=== PATIENT | female | born 1965 | race Caucasian/White ===

== ENCOUNTER 2021-10-10 18:24 | Emergency (ER) | payer OTHER ==
[2021-10-10 19:33] LABS: Absolute Lymphocytes (CBC) 3.6 K/uL (0.7-4.9); Hematocrit 41.7 % (36.0-45.0); Lymphocytes % 42.1 % (15.3-44.8); MCV 89.3 fL (80-100); MPV 9.6 fL (7.6-11.3); RBC Red Blood Cell Count 4.67 M/uL (3.86-4.86)
--- NOTE | 2021-10-10 19:44 | RAD REPORT ---
EXAM DESCRIPTION: Feliciano Single View10/10/2021 7:34 pm CLINICAL HISTORY: Chest pain COMPARISON: none FINDINGS: The lungs appear clear of acute infiltrate. The heart is normal size IMPRESSION: No acute abnormalities displayed
[2021-10-10 19:47] LABS: Protime INR 1.08
[2021-10-10] MEDS ORDERED: ASPIRIN 81 MG CHEWABLE TABLET ONE (19:47)
[2021-10-10 19:57] LABS: ALT/SGPT 18 U/L (12-78); AST/SGOT 12 U/L (15-37); Albumin 3.7 g/dL (3.4-5.0); Alkaline Phosphatase 114 U/L (45-117); BUN Blood Urea Nitrogen 11 mg/dL (7-18); Bicarbonate 27 mmol/L (21-32); Bilirubin Total 0.3 mg/dL (0.2-1.0); Glomerular Filtration Rate 69 ml/min (=/>90); Glucose Level 98 mg/dL (74-106); Magnesium 1.9 mg/dL (1.8-2.4); NT PRO-BNP 162 pg/mL (<125); Potassium 3.8 mmol/L (3.5-5.1); Protein, Total 7.1 g/dL (6.4-8.2); Sodium Level 140 mmol/L (136-145); Troponin High Sensitivity 4.3 pg/mL (<58.9)
[2021-10-10 19:59] LABS: Bilirubin Direct < 0.1 mg/dL (0-0.2)
--- NOTE | 2021-10-10 20:15 | RAD REPORT ---
EXAM DESCRIPTION: USExtrem Venous W Compress Bil10/10/2021 8:01 pm CLINICAL HISTORY: Leg pain COMPARISON: none FINDINGS: The common femoral, superficial femoral, popliteal and posterior tibial veins bilaterally are compressible and demonstrate augmentation. Doppler demonstrates good flow. Grayscale, color and spectral analysis performed on all vessels IMPRESSION: No evidence of deep venous thrombosis involving either lower extremity.
[2021-10-10] MEDS ORDERED: HYDROCODONE/APAP 10/325 TAB ONE (20:35)
--- NOTE | 2021-10-10 21:42 | RAD REPORT ---
EXAM DESCRIPTION: CT - Angio Aorta For Dissection - 10/10/2021 9:25 pm CLINICAL HISTORY: . Chest and abd pain COMPARISON: None TECHNIQUE: Computed tomography angiography of the chest, abdomen pelvis were obtained. 100 cc Isovue 370 was administered intravenously. Coronal and sagittal reconstruction were performed. MIP 3D reconstruction was performed All CT scans are performed using dose optimization technique as appropriate and may include automated exposure control or mA/KV adjustment according to patient size. FINDINGS: An aortic dissection is not seen. An aortic aneurysm is not displayed. The celiac, SMA and IRENA are patent . Mild to moderate thrombus within the abdominal aorta with small ulcerating plaque. A lung consolidation is not present. A pericardial effusion is not seen. A pleural effusion is not no [place]. Mild COPD The liver,spleen, pancreas,adrenals and kidneys demonstrate no significant abnormality. There no evidence diverticulitis. No adnexal mass Normal appendix. Small umbilical hernia IMPRESSION: Negative for an aortic dissection.
--- NOTE | 2021-10-10 22:11 | ER ---
Nurse's Notes [facility] Name: Sherley Tilley Age: 56 yrs Sex: Female : 1965 Arrival Date: 10/10/2021 Time: 18:26 Bed 5 Private MD: Diagnosis: Chest pain, unspecified Presentation: 10/10 18:28 Chief complaint: Patient states: I started having some pain in the middle of my chest bm7 this morning and I tried to work through it but I cant anymore. I think it is due to my productive cough. Coronavirus screen: At this time, the client does not indicate any symptoms associated with coronavirus-19. Ebola Screen: No symptoms or risks identified at this time. Initial Sepsis Screen: Does the patient meet any 2 criteria? No. Patient's initial sepsis screen is negative. Does the patient have a suspected source of infection? Yes: Productive cough/pneumonia. Risk Assessment: Do you want to hurt yourself or someone else? Patient reports no desire to harm self or others. Onset of symptoms was October 10, 2021. 18:28 Method Of Arrival: Ambulatory bm7 18:28 Acuity: ELICEO 3 bm7 Triage Assessment: 18:47 General: Appears in no apparent distress. uncomfortable, Behavior is calm, cooperative, bm7 appropriate for age. Pain: Complains of pain in mid-sternal area Pain does not radiate. Pain began gradually, Is intermittent. EENT: No deficits noted. No signs and/or symptoms were reported regarding the EENT system. Neuro: No deficits noted. Cardiovascular: Patient's skin is warm and dry. Rhythm is sinus rhythm Chest pain is described as mild. Respiratory: Reports cough that is productive, Breath sounds are coarse bilaterally. GI: No deficits noted. No signs and/or symptoms were reported involving the gastrointestinal system. : No deficits noted. No signs and/or symptoms were reported regarding the genitourinary system. Derm: No deficits noted. No signs and/or symptoms reported regarding the dermatologic system. Musculoskeletal: No deficits noted. No signs and/or symptoms reported regarding the musculoskeletal system. 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 - Social history:: Smoking status: Patient reports the use of cigarette tobacco products, smokes one-half pack cigarettes per day. Screenin:00 Abuse screen: Denies threats or abuse. Nutritional screening: No deficits noted. jb4 Tuberculosis screening: No symptoms or risk factors identified. Fall Risk None identified. Assessment: 19:15 General: Appears in no apparent distress. comfortable, Behavior is calm, cooperative, jb4 appropriate for age. Pain: Complains of pain in chest Pain does not radiate. Pain currently is 4 out of 10 on a pain scale. Quality of pain is described as Rubbing pain Pain began gradually, Is continuous. Neuro: Level of Consciousness is awake, alert, obeys commands, Oriented to person, place, time, situation. Cardiovascular: Patient's skin is warm and dry. Respiratory: Airway is patent Respiratory effort is even, unlabored, Respiratory pattern is regular, symmetrical. Derm: Skin is intact, Skin is pink, warm \T\ dry. Musculoskeletal: Circulation, motion, and sensation intact. Range of motion: intact in all extremities. 20:18 Reassessment: Patient appears in no apparent distress at this time. Patient and/or jb4 family updated on plan of care and expected duration. Pain level reassessed. Patient is alert, oriented x 3, equal unlabored respirations, skin warm/dry/pink. 21:10 Reassessment: Patient appears in no apparent distress at this time. Patient and/or jb4 family updated on plan of care and expected duration. Pain level reassessed. Patient is alert, oriented x 3, equal unlabored respirations, skin warm/dry/pink. 22:00 Reassessment: Patient appears in no apparent distress at this time. Patient and/or jb4 family updated on plan of care and expected duration. Pain level reassessed. Patient is alert, oriented x 3, equal unlabored respirations, skin warm/dry/pink. 23:36 Reassessment: Patient appears in no apparent distress at this time. Patient and/or jb4 family updated on plan of care and expected duration. Pain level reassessed. Patient is alert, oriented x 3, equal unlabored respirations, skin warm/dry/pink. Vital Signs: 18:28 BP 179 / 78; Pulse 69; Resp 18; Temp 97.8(TE); Pulse Ox 100% on R/A; Weight 81.65 kg bm7 (R); Height 5 ft. 8 in. (172.72 cm); Pain 4/10; 19:00 BP 139 / 75; Pulse 66; Resp 16; Pulse Ox 97% on R/A; jb4 20:30 BP 185 / 56; Pulse 66; Resp 18; Pulse Ox 96% on R/A; jb4 22:00 BP 146 / 72; Pulse 65; Resp 16; Pulse Ox 92% on R/A; jb4 23:00 BP 161 / 72; Pulse 59; Resp 18; Pulse Ox 95% on R/A; jb4 18:28 Body Mass Index 27.37 (81.65 kg, 172.72 cm) bm7 ED Course: 18:26 Patient arrived in ED. am2 18:28 Adrian Dean PA is PHCP. cp 18:28 Adrian Holly MD is Attending Physician. cp 18:33 Triage completed. bm7 18:47 Arm band placed on right wrist. EKG completed in triage. Results shown to MD. bm7 19:00 Patient has correct armband on for positive identification. Placed in gown. Bed in low jb4 position. Call light in reach. Side rails up X 1. Client placed on continuous cardiac and pulse oximetry monitoring. NIBP monitoring applied. 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 19:00 Patient maintains SpO2 saturation greater than 95% on room air. jb4 19:09 Maxwell Soto, RN is Primary Nurse. jb4 19:20 Inserted saline lock: 22 gauge in right upper arm, using aseptic technique. Blood jb4 collected. 19:23 Initial lab(s) drawn, by me, sent to lab. jb4 19:35 XRAY Chest (1 view) In Process Unspecified. EDMS 19:44 Basic Metabolic Panel Sent. jb4 19:44 LFT's Sent. jb4 19:44 Magnesium Sent. jb4 19:44 NT PRO-BNP Sent. jb4 19:44 PT-INR Sent. jb4 19:45 Troponin HS Sent. jb4 20:03 US Extremity Venous W Compression Júnior In Process Unspecified. EDMS 21:26 CT Aorta for Dissection In Process Unspecified. EDMS 22:10 Franky Bach MD is Hospitalizing Provider. kb 23:25 No provider procedures requiring assistance completed. IV discontinued, intact, jb4 bleeding controlled, No redness/swelling at site. Pressure dressing applied. Administered Medications: 19:44 Drug: Aspirin Chewable Tablet 324 mg Route: PO; jb4 22:28 Follow up: Response: No adverse reaction; Marked relief of symptoms jb4 20:23 Not Given (Patient Refused): morphine 4 mg IVP once over 4 mins jb4 20:27 Drug: [place] (HYDROcodone-acetaminophen) 10 mg-325 mg 1 tabs Route: PO; jb4 22:29 Follow up: Response: No adverse reaction; Marked relief of symptoms; Pain is decreased jb4 Medication: 23:00 VIS not applicable for this client. jb4 Outcome: 22:11 Decision to Hospitalize by Provider. kb 22:55 Discharge ordered by MD. kb 23:25 Discharged to home ambulatory. jb4 23:25 Condition: stable 23:25 Discharge instructions given to patient, Instructed on discharge instructions, follow up and referral plans. Demonstrated understanding of instructions, follow-up care. 23:37 Patient left the ED. jb4 Signatures: Dispatcher [employer] EDMS Jane Casper, CAR PICK UP DRIVER-C CAR PICK UP DRIVER-Ckb Adrian Dean PA PA cp Bryson, James, RN RN jb4 Elmira Finch am2 Anastasiya Jaime, RN RN bm7 Corrections: (The following items were deleted from the chart) 20:28 19:15 Pain: Complains of pain in chest Pain does not radiate. Pain currently is 4 out jb4 of 10 on a pain scale. jb4
--- NOTE | 2021-10-10 22:11 | EDPHYS ---
Physician Documentation [facility] Name: Sherley Tilley Age: 56 yrs Sex: Female : 1965 Arrival Date: 10/10/2021 Time: 18:26 Bed 5 Private MD: ED Physician Adrian Holly HPI: 10/10 18:35 This 56 yrs old Female presents to ER via Ambulatory with complaints of Chest Pain. cp 18:35 The patient or guardian reports chest pain that is located primarily in the substernal cp area. Onset: this morning, about 0600. 18:35 The pain radiates to between shoulder blades. Associated signs and symptoms: Pertinent cp positives: cough, lower extremity pain, recent travel, Pertinent negatives: abdominal pain, shortness of breath. The chest pain is described as sharp, stabbing. Duration: The patient or guardian reports a single episode, that is still ongoing. 18:35 Severity of pain: in the emergency department the pain is unchanged despite home cp interventions. 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 - Social history:: Smoking status: Patient reports the use of cigarette tobacco products, smokes one-half pack cigarettes per day. ROS: 18:40 Constitutional: Negative for body aches, chills, fever, poor PO intake. cp 18:40 Eyes: Negative for injury, pain, redness, and discharge. cp 18:40 ENT: Negative for drainage from ear(s), ear pain, sore throat, difficulty swallowing, difficulty handling secretions. 18:40 Cardiovascular: Positive for chest pain, Negative for edema, palpitations. 18:40 Respiratory: Positive for cough, "sounds productive", Negative for shortness of breath, wheezing. 18:40 Abdomen/GI: Negative for abdominal pain, vomiting, diarrhea, constipation. 18:40 Skin: Negative for cellulitis, rash. 18:40 Neuro: Negative for altered mental status, dizziness, headache, numbness, syncope, weakness. 18:40 All other systems are negative. cp Exam: 18:43 ECG was reviewed by the Attending Physician. cp 18:45 Constitutional: The patient appears in no acute distress, alert, awake, cp non-diaphoretic, non-toxic, well developed, well nourished. 18:45 Head/Face: Normocephalic, atraumatic. cp 18:45 Eyes: Periorbital structures: appear normal, Conjunctiva: normal, no exudate, no cp injection, Sclera: no appreciated abnormality, Lids and lashes: appear normal, bilaterally. 18:45 ENT: External ear(s): are unremarkable, Nose: is normal, Mouth: Lips: moist, Oral mucosa: pink and intact, moist, Posterior pharynx: Airway: no evidence of obstruction, patent. 18:45 Neck: ROM/movement: is normal, is supple, without pain, no range of motions limitations, no nuchal rigidity. 18:45 Chest/axilla: Inspection: normal, Palpation: is normal, no crepitus, no tenderness. cp 18:45 Cardiovascular: Rate: normal, Rhythm: regular, Edema: is not appreciated, JVD: is not appreciated. 18:45 Respiratory: the patient does not display signs of respiratory distress, Respirations: normal, no use of accessory muscles, no retractions, labored breathing, is not present, Breath sounds: are clear throughout, no decreased breath sounds, no stridor, no wheezing. 18:45 Abdomen/GI: Inspection: abdomen appears normal, Bowel sounds: active, all quadrants, Palpation: abdomen is soft and non-tender, in all quadrants. 18:45 Back: pain, that is mild, of the upper back between shoulder blades, ROM is normal. 18:45 Skin: cellulitis, is not appreciated, no rash present. 18:45 Neuro: Orientation: to person, place \\T\\ time. Mentation: is normal, Motor: moves all fours, strength is normal, Sensation: is normal. Vital Signs: 18:28 BP 179 / 78; Pulse 69; Resp 18; Temp 97.8(TE); Pulse Ox 100% on R/A; Weight 81.65 kg bm7 (R); Height 5 ft. 8 in. (172.72 cm); Pain 4/10; 19:00 BP 139 / 75; Pulse 66; Resp 16; Pulse Ox 97% on R/A; jb4 20:30 BP 185 / 56; Pulse 66; Resp 18; Pulse Ox 96% on R/A; jb4 22:00 BP 146 / 72; Pulse 65; Resp 16; Pulse Ox 92% on R/A; jb4 23:00 BP 161 / 72; Pulse 59; Resp 18; Pulse Ox 95% on R/A; jb4 18:28 Body Mass Index 27.37 (81.65 kg, 172.72 cm) bm7 MDM: 18:31 Patient medically screened. kyleigh 20:00 Differential diagnosis: abnormal EKG, acute myocardial infarction, acute pericarditis, cp anxiety, chest wall pain, pericarditis, pleurisy, pneumonia, pneumothorax, pulmonary embolus, stable angina, thoracic aortic disection, unstable angina. 22:11 Data reviewed: vital signs, nurses notes. Data interpreted: Pulse oximetry: on room air kb is 92 %. Interpretation: normal. 22:53 Counseling: I had a detailed discussion with the patient and/or guardian regarding: the kb historical points, exam findings, and any diagnostic results supporting the discharge/admit diagnosis, lab results, radiology results, the need for further work-up and treatment in the hospital. ED course: Pt does not want to be admitted. Pt understands risks including possibility of . Pt requests to go home. Pt informed that she is free to return at any time for any reason. . 10/10 19:04 Order name: Basic Metabolic Panel; Complete Time: 20:17 cp 10/10 19:04 Order name: CBC with Diff; Complete Time: 19:55 cp 10/10 19:55 Interpretation: Reviewed. cp 10/10 19:04 Order name: LFT's; Complete Time: 20:17 cp 10/10 19:04 Order name: Magnesium; Complete Time: 20:17 cp 10/10 19:04 Order name: NT PRO-BNP; Complete Time: 20:17 cp 10/10 19:04 Order name: PT-INR; Complete Time: 19:55 cp 10/10 19:04 Order name: Troponin HS; Complete Time: 20:17 cp 10/10 19:04 Order name: XRAY Chest (1 view); Complete Time: 19:55 cp 10/10 19:55 Interpretation: Report review. 10/10 19:16 Order name: US Extremity Venous W Compression Júnior; Complete Time: 20:17 cp 10/10 20:18 Order name: CT Aorta for Dissection; Complete Time: 22:08 cp 10/10 19:04 Order name: EKG; Complete Time: 19:05 cp 10/10 19:04 Order name: Cardiac monitoring; Complete Time: 19:13 cp 10/10 19:04 Order name: EKG - Nurse/Tech; Complete Time: 19:13 cp 10/10 19:04 Order name: IV Saline Lock; Complete Time: 19:44 cp 10/10 19:04 Order name: Labs collected and sent; Complete Time: 19:44 cp 10/10 19:04 Order name: O2 Per Protocol; Complete Time: 19:14 cp 10/10 19:04 Order name: O2 Sat Monitoring; Complete Time: 19:14 cp EC:43 Rate is 66 beats/min. Rhythm is regular. VA interval is normal. QRS interval is normal. cp QT interval is normal. T waves are Inverted in lead aVR. Interpreted by me. Reviewed by me. Administered Medications: 19:44 Drug: Aspirin Chewable Tablet 324 mg Route: PO; jb4 22:28 Follow up: Response: No adverse reaction; Marked relief of symptoms jb4 20:23 Not Given (Patient Refused): morphine 4 mg IVP once over 4 mins jb4 20:27 Drug: [place] (HYDROcodone-acetaminophen) 10 mg-325 mg 1 tabs Route: PO; jb4 22:29 Follow up: Response: No adverse reaction; Marked relief of symptoms; Pain is decreased jb4 Disposition Summary: 10/10/21 22:55 Discharge Ordered Location: Home(10/10/21 22:55) kb Condition: Stable(10/10/21 22:55) kb Diagnosis - Chest pain, unspecified(10/10/21 22:55) kb Followup: kb - With: Emergency Department - When: As needed - Reason: Worsening of condition Followup: kb - With: Private Physician - When: 2 - 3 days - Reason: Recheck today's complaints, Continuance of care, Re-evaluation by your physician Discharge Instructions: - Discharge Summary Sheet kb - Nonspecific Chest Pain, Adult, [id number] kb Forms: - Medication Reconciliation Form kb - Thank You Letter kb - Antibiotic Education kb - Prescription Opioid Use kb Signatures: Dispatcher [employer] EDMS Tremayne Jane, IMMUNOCHEMIST-C IMMUNOCHEMIST-Ckb Adrian Holly MD MD cha Page, Corey, PA PA cp Bryson, James, RN RN jb4 Anastasiya Jaime, RN RN bm7 Corrections: (The following items were deleted from the chart) 22:55 22:11 Observation kb kb : 22:11 Franky Bach kb kb : 22:11 Telemetry/MedSurg (observation) kb kb : 22:11 Stable kb kb : 22:11 new kb kb : 22:11 are unchanged kb kb : 22:11 Standard kb kb 22:55 22:11 kb kb : 22:11 Chest pain, unspecified kb kb
[2021-10-11 02:23] VITALS: TEMP 97.8
[2021-10-11 02:34] VITALS: BP 161/72; O2SAT 95
--- NOTE | 2021-10-13 08:14 | EKG ---
Test Date: 2021-10-10 Test Time: 18:40:07 Prevention Rn: MONICA MEASUREMENT RESULTS: Intervals: Rate: 66 MT: 158 QRSD: 80 QT: 396 QTc: 415 [place]: P: 64 MT: 158 QRS: 72 T: 61 INTERPRETIVE STATEMENTS: Normal sinus rhythm Normal ECG No previous ECG available for comparison Electronically Signed On 10-13-21 08:07:07 CDT by Jean Castillo
== END 2021-10-10 23:37 | disposition home or self-care (01) ==
LOC: ER 18:24
DX: R07.89 Other chest pain (principal); I10 Essential (primary) hypertension; F17.210 Nicotine dependence, cigarettes, uncomplicated
CPT/HCPCS: 85025; 80048; 36415; 83735; 85610; 80076; 84484; 83880; 71275; 74175; 71045; 93970; 99285; Q9967; 93005